=== PATIENT | male | born 1940 | race Caucasian/White ===

== ENCOUNTER → 2019-12-13 | Outpatient (CLI) | payer MEDICARE, OTHER ==
[~2019-12-13] MED LIST: OMNIPAQUE 350 MG/ML, 100ML BOTTLE ONE
== END | disposition home or self-care (01) ==
LOC: CFH 11:55
PROVIDERS: ATTEND Pathology Hematology
DX: C7A.012 Malignant carcinoid tumor of the ileum (principal); K57.30 Diverticulosis of large intestine without perforation or abscess without bleeding; R59.0 Localized enlarged lymph nodes; M47.816 Spondylosis without myelopathy or radiculopathy, lumbar region; N20.0 Calculus of kidney
CPT/HCPCS: 74177; Q9967

== ENCOUNTER 2020-05-14 18:23 | Emergency (ER) | payer MEDICARE, OTHER ==
[~2020-05-14] VITALS: Ht 185.4 cm; Wt 77.0 kg
--- NOTE | 2020-05-14 18:34 | NUR ---
PT VERY POOR HISTORIAN, WHEN ASKED IF HE IS HAVING CHEST PAIN PT STATES "HOT TEA?" "IM ALLERGIC TO COLD" PT TO ALL MONTIORS AT THIS TIME, AWAITING MICHELLE COLUNGA
--- NOTE | 2020-05-14 18:46 | NUR ---
BEDSIDE REPORT FROM [facility], PT CARE TRANSFERRED AT THIS TIME. PT RESTING ON GURNEY, APPEARS COMFORTABLE, NAD, WCTM. WAITING FOR TEST RESULTS.
[2020-05-14 19:06] LABS: BASOPHILS % (AUTO) 1 % (0-1); EOSINOPHILS % (AUTO) 2 % (1-7); LYMPHOCYTES % (AUTO) 19 % (22-44); MEAN CORPUSCULAR HEMOGLOBIN 31.6 pg (27.5-34.5); MEAN CORPUSCULAR HGB CONC 33.3 g/dL (33.2-36.2); MEAN PLATELET VOLUME 8.2 fL (7.4-10.4); MONOCYTES % (AUTO) 15 % (2-9); NEUTROPHILS % (AUTO) 64 % (42-75); PLATELET COUNT 222 x10^3/uL (130-400); RED BLOOD COUNT 4.14 x10^6/uL (4.38-5.82); RED CELL DISTRIBUTION WIDTH 13.6 % (9.4-14.8)
[2020-05-14 19:10] LABS: MD NO
[2020-05-14 19:16] LABS: ALBUMIN 3.8 g/dL (3.4-5.0); ANION GAP 6 mmol/L (5-15); CALCIUM 8.7 mg/dL (8.5-10.1); CHLORIDE 101 mmol/L (98-107)
[2020-05-14 19:22] LABS: CREATININE 0.84 mg/dL (0.7-1.3); TROPONIN I < 0.015 ng/mL (0.000-0.045)
--- NOTE | 2020-05-14 19:57 | NUR ---
PT RESTING ON GURNEY COMFORTABLY, NAD, DENIES ADDITIONAL NEEDS. THIS RN CALLED [facility] TO UPDATE, INSTRUCTED RN TO CALL [facility] FOR [facility]. RN SPOKE TO PAUL[facility] AT [facility] WHO COORDINATED RIDE FOR PT.
[2020-05-14 20:01] VITALS: BP 131/79
--- NOTE | 2020-05-14 20:30 | NUR ---
PT ASSISTED INTO RIDE, PT REPEATEDLY STATES "I DONT THINK THIS IS RIGHT, IM NOT FULLY FIXED AND IM COLD" PT WAS INFORMED OF DC INSTRUCTIONS AND NO ABNORMALITIES ON TESTS MAKING ADMISSION TO THE HOSPITAL NECESSARY. RN REVIEWED DC PAPERS 3 TIMES WITH PT. PT ASSISTED INTO 2 SHIRTS, MOCCASINS, PANTS AND A JACKET. FACILITY AWARE PT WILL BE ARRIVING SHORTLY. PT AMBULATED WITH A SMOOTH GAIT, NAD. NO PERSONAL BELONGINGS LEFT IN ROOM AFTER DC
== END 2020-05-14 20:37 | disposition home or self-care (01) ==
LOC: ED 20:00
DX: R07.89 Other chest pain (principal); I44.0 Atrioventricular block, first degree
CPT/HCPCS: 36415; 71045; 80048; 82040; 84484; 85025; 93005; 99285